=== PATIENT | female | born 1970 | race Caucasian/White ===

== ENCOUNTER → 2018-07-05 | Outpatient (CLI) | payer BC ==
--- NOTE | 2018-07-05 10:17 | PCVCIMAG ---
APPROVED REPORT Study performed: 07/05/2018 08:28:32 EXAM: Comprehensive 2D, Doppler, and color-flow Echocardiogram Patient Location: Echo lab Room #: 2Status: routine BSA: 1.77 HR: 84 bpmBP: 102/62 mmHg Rhythm: NSR Other Information Study Quality: Good Indications Abnormal ECG Palpitations Tachycardia 2D Dimensions IVSd: 7.28 (7-11mm)LVOT Diam: 20.67 (18-24mm) LVDd: 40.79 mm PWd: 8.15 (7-11mm)Ascending Ao: 27.97 (22-36mm) LVDs: 25.08 (25-40mm) Left Atrium: 25.02 (27-40mm) Aortic Root: 25.59 mm LV Single Plane 4CH: 57.27 % LV Single Plane 2CH: 63.12 % Biplane EF: 60.7 % Volumes Left Atrial Volume (Systole) Single Plane 4CH: 68.34 mLSingle Plane 2CH: 80.87 mL Biplane LA Volume: 78.00 mLLA ESV Index: 43.00 mL/m2 Aortic Valve AoV Peak Jarrett.: 1.36 m/s AO Peak Gr.: 7.42 mmHgLVOT Max P.66 mmHg LVOT Max V: 0.96 m/s CARINE Vmax: 2.36 cm2 Mitral Valve E/A Ratio: 1.3 MV Decel. Time: 124.68 ms MV E Max Jarrett.: 0.79 m/s MV A Jarrett.: 0.59 m/s IVRT: 76.12 ms TDI E/Lateral E': 8.78E/Medial E': 8.78 Medial E' Jarrett.: 0.09 m/s Lateral E' Jarrett.: 0.09 m/s Pulmonary Valve PV Peak Jarrett.: 0.81 m/sPV Peak Gr.: 2.62 mmHg Pulmonary Vein P Vein S: 0.62 m/sP Vein A: 0.59 m/s P Vein D: 0.49 m/sP Vein A Dur.: 83.0 msec P Vein S/D Ratio: 1.27 Tricuspid Valve TR Peak Jarrett.: 2.20 m/s TR Peak Gr.: 19.33 mmHg TV Vmax: 0.54 m/sPA Pressure: 26.00 mmHg Left Ventricle The left ventricle is normal size. There is normal LV segmental wall motion. There is normal left ventricular wall thickness. Left ventricular systolic function is normal. The left ventricular ejection fraction is within the normal range. LVEF is 60-65%. The left ventricular diastolic function is normal. Right Ventricle The right ventricle is normal size. The right ventricular systolic function is normal. Atria Left atrium is mildly dilated. Atrial septal aneurysm is present without PFO. The right atrium size is normal. Aortic Valve The aortic valve is normal in structure. No aortic regurgitation is present. There is no aortic valvular stenosis. Mitral Valve The mitral valve is normal in structure. There is no mitral valve regurgitation noted. No evidence of mitral valve stenosis. Tricuspid Valve The tricuspid valve is normal in structure. Trace tricuspid regurgitation with a PA pressure of 26 mmHg. No pulmonary hypertension. Pulmonic Valve The pulmonary valve is normal in structure. There is no pulmonic valvular regurgitation. Great Vessels The aortic root is normal in size. The ascending aorta is normal in size. Aortic arch is normal in caliber. IVC is normal in size and collapses >50% with inspiration. Pericardium There is no pericardial effusion. There is no pleural effusion. <Conclusion> The left ventricle is normal size. There is normal left ventricular wall thickness. Left ventricular systolic function is normal. The right ventricle is normal size. Left atrium is mildly dilated. Atrial septal aneurysm is present without PFO. The right atrium size is normal. The aortic valve is normal in structure. The mitral valve is normal in structure. Trace tricuspid regurgitation with a PA pressure of 26 mmHg.
--- NOTE | 2018-07-05 10:22 | PCVCIMAG ---
APPROVED REPORT Patient Location: Echo lab- [facility] Room #: 2 Stress Nurse: Pura Tiwari RN INDICATIONS: Palpitations, tachycardia, abnormal EKG The patient exercised according to the CUONG protocol for 13:02 mins; achieving a work level of 17.2 METS. The resting heart rate of 84 bpm robert to a maximum heart rate of 184 bpm. This value represent 107% of the maximal, age-predicted heart rate. The resting blood pressure of 102/62 mmHg, robert to a maximum blood pressure of 144/80 mmHg. The exercise test was stopped due to fatigue. Conclusion 1. Clinical response, nonischemic. 2. Stress ECG response, nonischemic. 3. Exercise capacity, superior.
== END | disposition home or self-care (01) ==
LOC: PCVCIMAG 09:07
PROVIDERS: ATTEND Internal Medicine Cardiovascular Disease
DX: I51.7 Cardiomegaly (principal); R94.31 Abnormal electrocardiogram [ECG] [EKG]; R00.2 Palpitations; I47.1 Supraventricular tachycardia; Z88.1 Allergy status to other antibiotic agents; Z72.89 Other problems related to lifestyle
CPT/HCPCS: 93017; 93306